=== PATIENT | male | born 1965 | race African-American/Black ===

== ENCOUNTER 2016-12-16 20:21 | Emergency (ER) | payer SELFPAY ==
[~2016-12-16] VITALS: Ht 185.4 cm; Wt 95.0 kg
[2016-12-16] MEDS ORDERED: LORAZEPAM 2MG/ML CPJ IV STA (21:31)
[2016-12-16] MEDS ORDERED: SODIUM CHLORIDE 0.9% 1,000 ML IV ONE (21:31)
[2016-12-16 21:51] LABS: BASOPHILS % 0.2 % (0.0-2.0); HEMATOCRIT. 40.4 % (42.0-52.0); HEMOGLOBIN. 13.6 g/dL (14.0-18.0); LYMPHOCYTES % 14.7 % (20.0-50.0); MEAN CORPUSCULAR HEMOGLOBIN 30.8 pg (28.0-32.0); MEAN CORPUSCULAR VOLUME 91.2 fL (80.0-94.0); MEAN PLATELET VOLUME 7.9 fl (7.4-10.4); NEUTROPHILS % 81.1 % (40.0-76.0); PLATELET 202 x1000/uL (130-400); RED BLOOD CELL COUNT 4.43 mill/uL (4.7-6.1); RED CELL DISTRIBUTION WIDTH 14.8 % (11.6-14.6)
[2016-12-16 21:57] LABS: CHLORIDE 109 mEq/L (98-107)
[2016-12-16 22:00] LABS: CARBON DIOXIDE 20 mEq/L (21-32)
[2016-12-16 22:07] LABS: TROPONIN I < 0.02 ng/mL (0.00-0.04)
[2016-12-16] MEDS ORDERED: ONDANSETRON HCL 4MG/2ML VIAL IV ONE (22:15)
[2016-12-16 23:21] VITALS: BP 133/76
== END 2016-12-17 00:30 | disposition home or self-care (01) ==
LOC: ER 21:18
DX: T40.5X1A Poisoning by cocaine, accidental (unintentional), initial encounter (principal); F17.200 Nicotine dependence, unspecified, uncomplicated; F14.10 Cocaine abuse, uncomplicated; F12.10 Cannabis abuse, uncomplicated; Y92.89 Other specified places as the place of occurrence of the external cause
CPT/HCPCS: 36415; 71010; 80053; 84484; 85025; 93005; 96361; 96374; 96375; 99285; J2060; J2405; J7030; Z7610